=== PATIENT | female | born 1985 | race Caucasian/White ===

== ENCOUNTER → 2020-04-01 13:22 | Outpatient (CLI) | payer BC, SELFPAY ==
[2020-04-01 14:37] LABS: Basophils # 0.1 K/mm3 (0-0.2); Basophils % 0.4 % (0.1-2.0); Eosinophils # 0.4 K/mm3 (0.0-0.4); Eosinophils % 2.7 % (0.1-12.0); Hemoglobin 14.6 g/dL (12.2-16.2); Lymphocytes # 2.6 K/mm3 (0.7-4.5); Lymphocytes % 18.9 % (10-50); Mean Corpuscular HGB Conc 32.4 g/dL (31.8-35.4); Mean Corpuscular Hemoglobin 29.4 pg (27.0-31.2); Mean Corpuscular Volume 90.8 fl (81-99); Mean Platelet Volume 8.4 fl (7.4-10.4); Monocytes # 0.9 K/mm3 (0.1-1.0); Monocytes % 6.7 % (1.7-9.3); Neutrophils # 9.9 K/mm3 (1.8-7.8); Neutrophils % 71.3 % (37.0-80.0); Platelet Count 338 K/mm3 (142-424); Red Blood Count 4.96 M/mm3 (4.20-5.40); Red Cell Distribution Width 13.6 % (11.5-17.5); White Blood Count 13.9 K/mm3 (4.8-10.8)
[2020-04-01 14:54] LABS: INR 1.03 (0.9-1.1); Prothrombin Time 11.4 seconds (9.4-11.8)
[2020-04-01 15:39] LABS: Chloride 109 mmol/L (98-107); Potassium 4.2 mmoL/L (3.5-5.1); Sodium 141 mmol/L (136-145)
[2020-04-01 15:42] LABS: Alanine Aminotransferase 46 U/L (12-78); Albumin Level 4.7 g/dl (3.5-5.0); Albumin/Globulin Ratio 1.6 (1.1-1.8); Alkaline Phosphatase 76 U/L (38-126); Anion Gap 14.2 mEq/L (5-15); Aspartate Amino Transferase 38 U/L (14-36); Bilirubin,Total 0.6 mg/dl (0.2-1.3); Blood Urea Nitrogen 18 mg/dl (7-17); Carbon Dioxide 22 mmol/L (22.0-30.0); Estimated Glomerular Filt Rate 143 ml/min (>60); GFR (African American) 173 ML/MIN (>60); Total Protein,Serum 7.7 g/dl (6.3-8.2)
[2020-04-01 15:43] LABS: Glucose 94 mg/dl (74-100)
[2020-04-01 16:29] LABS: Urine Pregnancy, HCG Qual. Negative (Negative)
[2020-04-01 16:37] LABS: Barbiturates Screen,Urine Negative ng/ml (<200)
[2020-04-01 16:38] LABS: Amphetamine/Metha Screen,Urine Negative ng/ml (<1000); Benzodiazepines Screen,Urine Negative ng/ml (<200)
[2020-04-01 16:39] LABS: Methadone Screen,Urine Negative ng/ml (<300)
[2020-04-01 16:40] LABS: Cannabinoid Screen,Urine Negative ng/ml (<50); Cocaine Screen,Urine Negative ng/ml (<300)
[2020-04-01 16:41] LABS: Opiate Screen,Urine Negative ng/ml (<300); Phencyclidine Screen,Urine Negative ng/ml (<25)
[2020-04-04 01:25] LABS: HIV Screen 4th Generation wRfx Non Reactive (Non Reactive)
[2020-04-04 03:36] LABS: ALT (SGPT) P5P 47 IU/L (0-40); Alpha 2-Macroglobulins, Qn 167 mg/dL (110-276); Apolipoprotein A-1 135 mg/dL (116-209); Bilirubin, Total 0.3 mg/dL (0.0-1.2); Fibrosis Score 0.08 (0.00-0.21); GGT 22 IU/L (0-60); Haptoglobin 109 mg/dL (33-278); Necroinflammat Activity Grade A0-A1 (.); Necroinflammat Activity Score 0.21 (0.00-0.17)
[2020-04-04 19:22] LABS: Hepatitis C Genotype 1a (.)
== END ==
PROVIDERS: Visit Provider Nurse Practitioner Acute Care
DX: B19.20 Unspecified viral hepatitis C without hepatic coma (principal)
CPT/HCPCS: 36415; 80053; 80305; 81025; 81596; 85025; 85610; 86703; 86704; 86706; 87522; 87902; G0432

== ENCOUNTER → 2020-04-05 13:11 | Outpatient (CLI) | payer BC, SELFPAY ==
[2020-04-07 15:28] LABS: Hep B Core Ab, Total Negative (Negative); Hep B Surface Ab, Qual Reactive (.)
[2020-04-09 08:43] LABS: ALT (SGPT) P5P 45 IU/L (0-40); Alpha 2-Macroglobulins, Qn 149 mg/dL (110-276); Apolipoprotein A-1 122 mg/dL (116-209); Bilirubin, Total 0.1 mg/dL (0.0-1.2); Fibrosis Score 0.02 (0.00-0.21); GGT 15 IU/L (0-60); Haptoglobin 105 mg/dL (33-278); Necroinflammat Activity Grade A0-A1 (.); Necroinflammat Activity Score 0.18 (0.00-0.17)
[2020-04-10 17:14] LABS: Hepatitis C Genotype 1a (.)
[2020-04-10 21:50] LABS: Hepatitis C Genotype 1a (.)
== END ==
PROVIDERS: Visit Provider Nurse Practitioner Acute Care
DX: B19.20 Unspecified viral hepatitis C without hepatic coma (principal)
CPT/HCPCS: 36415; 81596; 86704; 86706; 87522; 87902

== ENCOUNTER → 2022-11-30 15:03 | Outpatient (CLI) | payer BC, SELFPAY ==
[2022-11-30 15:56] LABS: Basophils # 0.1 K/mm3 (0-0.2); Basophils % 0.4 % (0.1-2.0); Eosinophils # 0.4 K/mm3 (0.0-0.4); Hematocrit 40.4 % (37.0-47.0); Hemoglobin 13.3 g/dL (12.2-16.2); Lymphocytes # 2.6 K/mm3 (0.7-4.5); Lymphocytes % 18.4 % (10-50); Mean Corpuscular Hemoglobin 29.1 pg (27.0-31.2); Mean Corpuscular Volume 88.2 fl (81-99); Mean Platelet Volume 8.5 fl (7.4-10.4); Monocytes % 7.2 % (1.7-9.3); Neutrophils # 9.9 K/mm3 (1.8-7.8); Neutrophils % 71.1 % (37.0-80.0); Platelet Count 257 K/mm3 (142-424); Red Blood Count 4.58 M/mm3 (4.20-5.40); Red Cell Distribution Width 13.5 % (11.5-17.5); White Blood Count 13.9 K/mm3 (4.8-10.8)
[2022-11-30 16:15] LABS: Alanine Aminotransferase 47 U/L (12-78); Albumin Level 4.5 g/dl (3.5-5.0); Albumin/Globulin Ratio 1.6 (1.1-1.8); Alkaline Phosphatase 76 U/L (38-126); Anion Gap 17.1 mEq/L (5-15); Aspartate Amino Transferase 38 U/L (14-36); Bilirubin,Total 0.3 mg/dl (0.2-1.3); Blood Urea Nitrogen 13 mg/dl (7-17); Calcium 9.6 mg/dl (8.4-10.2); Carbon Dioxide 25 mmol/L (22.0-30.0); Chloride 103 mmol/L (98-107); Chol/HDL Ratio 3.3 (1-3.5); Cholesterol 163 mg/dl (140-200); Estimated Glomerular Filt Rate 140 ml/min (>60); GFR (African American) 170 ML/MIN (>60); Globulin 2.8 g/dL (1.3-3.2); Glucose 92 mg/dl (74-100); HDL Cholesterol 50 mg/dl (40-60); Potassium 4.1 mmoL/L (3.5-5.1); Sodium 141 mmol/L (136-145); Total Protein,Serum 7.3 g/dl (6.3-8.2); Triglycerides 122 mg/dl (30-150); VLDL Cholesterol 24 mg/dL (0-40)
[2022-11-30 16:33] LABS: Free T4 (Free Thyroxine) 1.12 ng/dl (0.78-2.19)
[2022-11-30 16:34] LABS: 25-OH Vitamin D, Total 32.4 ng/mL (30-100)
== END ==
PROVIDERS: PCP Emergency Medicine; Visit Provider Emergency Medicine
DX: R53.83 Other fatigue (principal); E55.9 Vitamin D deficiency, unspecified; F41.9 Anxiety disorder, unspecified; G62.9 Polyneuropathy, unspecified; I38 Endocarditis, valve unspecified; E66.3 Overweight; Z68.29 Body mass index [BMI] 29.0-29.9, adult
CPT/HCPCS: 36415; 80053; 80061; 82306; 84439; 84443; 85025

== ENCOUNTER → 2023-04-14 12:37 | Outpatient (CLI) | payer BC, SELFPAY ==
[2023-04-14 13:42] LABS: Basophils % 0.5 % (0.1-2.0); Eosinophils # 0.4 K/mm3 (0.0-0.4); Hematocrit 37.7 % (37.0-47.0); Hemoglobin 12.6 g/dL (12.2-16.2); Lymphocytes # 2.4 K/mm3 (0.7-4.5); Lymphocytes % 27.6 % (10-50); Mean Corpuscular HGB Conc 33.4 g/dL (31.8-35.4); Mean Corpuscular Volume 92.9 fl (81-99); Mean Platelet Volume 8.1 fl (7.4-10.4); Monocytes # 0.8 K/mm3 (0.1-1.0); Monocytes % 8.9 % (1.7-9.3); Neutrophils % 58.1 % (37.0-80.0); Platelet Count 241 K/mm3 (142-424); Red Blood Count 4.06 M/mm3 (4.20-5.40); Red Cell Distribution Width 13.1 % (11.5-17.5); White Blood Count 8.6 K/mm3 (4.8-10.8)
[2023-04-14 15:27] LABS: Alanine Aminotransferase 48 U/L (12-78); Albumin Level 4.5 g/dl (3.5-5.0); Alkaline Phosphatase 72 U/L (38-126); Anion Gap 12.2 mEq/L (5-15); Aspartate Amino Transferase 47 U/L (14-36); Bilirubin,Direct 0.2 mg/dl (0.0-0.4); Bilirubin,Indirect 0.2 mg/dL (0.0-0.9); Bilirubin,Total 0.4 mg/dl (0.2-1.3); Bilirubin,Unconjugated 0.2 mg/dL (0.0-1.1); Blood Urea Nitrogen 13 mg/dl (7-17); Calcium 9.4 mg/dl (8.4-10.2); Carbon Dioxide 25 mmol/L (22.0-30.0); Chloride 104 mmol/L (98-107); Chol/HDL Ratio 3.3 (1-3.5); Cholesterol 168 mg/dl (140-200); Estimated Glomerular Filt Rate 114 ml/min (>60); GFR (African American) 138 ML/MIN (>60); Glucose 92 mg/dl (74-100); HDL Cholesterol 51 mg/dl (40-60); Magnesium 1.7 mg/dl (1.6-2.3); Potassium 4.2 mmoL/L (3.5-5.1); Sodium 137 mmol/L (136-145); Total Protein,Serum 7.4 g/dl (6.3-8.2); Triglycerides 96 mg/dl (30-150); VLDL Cholesterol 19 mg/dL (0-40)
[2023-04-14 15:38] LABS: Direct LDL Cholesterol 96.52 mg/dL (100-129)
[2023-04-14 15:43] LABS: Free T4 (Free Thyroxine) 0.95 ng/dl (0.78-2.19)
[2023-04-14 15:57] LABS: Thyroid Stimulating Hormone 2.34 uIU/mL (0.465-4.68)
== END ==
PROVIDERS: PCP Emergency Medicine; Visit Provider Nurse Practitioner
DX: I20.89 Other forms of angina pectoris (principal); I38 Endocarditis, valve unspecified; Z72.0 Tobacco use
CPT/HCPCS: 36415; 80048; 80061; 80076; 83735; 84439; 84443; 85025

== ENCOUNTER → 2023-05-21 05:50 | Outpatient (CLI) | payer BC, SELFPAY | PROVIDERS: PCP Emergency Medicine; Visit Provider Nurse Practitioner | DX: I38 Endocarditis, valve unspecified (principal) ==

== ENCOUNTER 2024-10-12 14:53 | Outpatient (CLI) | payer MEDICAID, SELFPAY ==
[2024-10-12 18:25] LABS: Basophils # 0.1 K/mm3 (0-0.2); Basophils % 0.7 % (0.1-2.0); Eosinophils # 0.3 Kmm3 (0.0-0.4); Eosinophils % 3.4 % (0.1-12.0); Hematocrit 41.1 % (37.0-47.0); Hemoglobin 13.5 g/dL (12.2-16.2); Lymphocytes # 2.7 K/mm3 (0.7-4.5); Lymphocytes % 27.5 % (10-50); Mean Corpuscular HGB Conc 32.8 g/dL (31.8-35.4); Mean Corpuscular Volume 88.2 fl (81-99); Mean Platelet Volume 10.1 fl (7.4-10.4); Monocytes # 0.9 K/mm3 (0.1-1.0); Monocytes % 9.4 % (1.7-9.3); Neutrophils # 5.8 K/mm3 (1.8-7.8); Neutrophils % 58.8 % (37.0-80.0); Nucleated Red Blood Cells # 0 10^3/uL; Nucleated Red Blood Cells % 0 %; Platelet Count 306 K/mm3 (142-424); Red Blood Count 4.66 M/mm3 (4.20-5.40); Red Cell Distribution Width 13.9 % (11.5-17.5); Red Cell Distribution Width-SD 44.7 fL; White Blood Count 9.8 K/mm3 (4.8-10.8)
[2024-10-12 18:47] LABS: Albumin Level 4.5 g/dl (3.5-5.0); Chloride 108 mmol/L (98-107); Sodium 139 mmol/L (136-145)
[2024-10-12 18:48] LABS: Potassium 3.9 mmoL/L (3.5-5.1)
[2024-10-12 18:50] LABS: Alanine Aminotransferase 22 U/L (12-78); Albumin/Globulin Ratio 1.7 (1.1-1.8); Alkaline Phosphatase 83 U/L (38-126); Anion Gap 9.9 mEq/L (5-15); Aspartate Amino Transferase 24 U/L (14-36); Bilirubin,Total 0.2 mg/dl (0.2-1.3); Blood Urea Nitrogen 18 mg/dl (7-17); Carbon Dioxide 25 mmol/L (22.0-30.0); Cholesterol 159 mg/dl (140-200); Estimated Glomerular Filt Rate 81 ml/min (>60); GFR (African American) 98 ML/MIN (>60); Globulin 2.6 g/dL (1.3-3.2); Total Protein,Serum 7.1 g/dl (6.3-8.2); Triglycerides 88 mg/dl (30-150); VLDL Cholesterol 18 mg/dL (0-40)
[2024-10-12 18:51] LABS: Calcium 9.3 mg/dl (8.4-10.2); Chol/HDL Ratio 2.3 (1-3.5); Glucose 124 mg/dl (74-100); HDL Cholesterol 70 mg/dl (40-60)
[2024-10-12 19:03] LABS: Direct LDL Cholesterol 73.37 mg/dL (100-129)
[2024-10-12 19:14] LABS: 25-OH Vitamin D, Total 20.6 ng/mL (30-100)
[2024-10-12 19:23] LABS: Thyroid Stimulating Hormone 0.95 uIU/mL (0.465-4.68)
[2024-10-12 19:32] LABS: HIV Combo NEGATIVE (Negative)
[2024-10-12 20:33] LABS: Hemoglobin A1C 5.2 % (4.0-6.0)
[2024-10-12 21:25] LABS: Hepatitis C Ab Qual. W/ RFX REACTIVE (Negative)
== END 2024-10-12 23:59 | disposition home or self-care (01) ==
LOC: LAB.DROPOF 10-13 12:47
PROVIDERS: PCP Family Medicine; Visit Provider Family Medicine
DX: Z13.89 Encounter for screening for other disorder (principal); Z11.59 Encounter for screening for other viral diseases; R20.0 Anesthesia of skin; R20.2 Paresthesia of skin; Z87.39 Personal history of other diseases of the musculoskeletal system and connective tissue
CPT/HCPCS: 80053; 80061; 82306; 83036; 84443; 85025; 86803; 87389; 87522